=== PATIENT | male | born 1995 | race African-American/Black ===

== ENCOUNTER 2019-02-21 14:34 | Emergency (ER) | payer MEDICAID, OTHER ==
[~2019-02-21] VITALS: Wt 71.2 kg
[2019-02-21 14:43] VITALS: BP 150/72; PULSE 70; RESP 18
[2019-02-21] MEDS ORDERED: ACYC400T2 PO (16:46)
--- NOTE | 2019-02-21 16:49 | ERD ---
ER Documentation Chief Complaint Chief Complaint PENILE PAIN SINCE TODAY. NO DRAINAGE OR RASH HPI 23-year-old male presents with concerns about his genitals. Some burning pain on the right foreskin or shaft. He did have a new sexual partner last week. He denies any dysuria or penile discharge. He is concerned about STDs. Denies any fevers, vomiting, additional rashes. Denies any testicular pain or swelling. ROS All systems reviewed and are negative except as per history of present illness. Medications Home Meds Active Scripts Acyclovir* (Acyclovir*) 400 Mg Tablet, 400 MG PO TID for 7 Days, TAB Prov:HÉCTOR VANG MD 02/21/19 Allergies Allergies: Coded Allergies: No Known Drug Allergies (Verified Allergy, 03/28/13) FmHx Family History: No diabetes, No coronary disease, No other Physical Exam Vitals Vital Signs Date Temp Pulse Resp B/P (MAP) Pulse Ox O2 O2 Flow FiO2 Time Delivery Rate 02/21/19 98.0 70 18 150/72 98 14:43 (98) Physical Exam Const: No acute distress Head: Atraumatic Eyes: Normal Conjunctiva ENT: Normal External Ears, Nose and Mouth. Neck: Full range of motion. No meningismus. Resp: Clear to auscultation bilaterally Cardio: Regular rate and rhythm, no murmurs Abd: Soft, non tender, non distended. Normal bowel sounds Skin: No petechiae or rashes. Irritation possible early vesicular lesion on the right penile shaft uncircumcised male. Testicles nontender normal size and descended bilaterally. No penile discharge. Back: No midline or flank tenderness Ext: No cyanosis, or edema Neur: Awake and alert Psych: Normal Mood and Affect Results 24 hrs Current Medications Medications Dose Sig/Gideon Start Time Status Last (Trade) Ordered Route PRN Stop Time Admin Dose Reason Admin Ceftriaxone 250 mg ONCE ONCE 02/21/19 Sodium IM 17:00 (Rocephin) 02/21/19 17:01 1,000 mg ONCE ONCE 02/21/19 Azithromycin PO 17:00 (Zithromax) 02/21/19 17:01 Procedures/MDM Viral swab sent for herpes culture. Urine sent for gonorrhea chlamydia. Patient wishes to be treated for herpes as well as gonorrhea chlamydia. He was given Rocephin 250 mg IM, Zithromax 1 g p.o. he will be treated with acyclovir for possible herpes although suspicion is low.. Patient is advised to recheck for any worsening symptoms with primary care doctor. There is no signs of abdominal pain, sepsis, additional concerning signs or symptoms. The patient was stable with no new complaints during the ER course. Clinically, there is no current evidence to suggest meningitis, sepsis, acute abdomen, pneumonia, stroke, acute coronary syndrome, pulmonary embolism, aortic dissection or any other emergent condition appearing to require further evaluation or hospitalization. Patient counseled regarding my diagnostic impression and care plan. Prior to discharge all questions answered. Pt agrees with treatment plan and understands strict return precautions. Pt is instructed to follow up with primary care provider within 24-48 hours. Precautionary instructions provided including instructions to return to the ER if not improving or for any worsening or changing symptoms or concerns. Departure Diagnosis: Primary Impression: Pain of male genitalia Condition: Stable Patient Instructions: Urethritis in Men Referrals: [facility] BANUELOS (PCP) Additional Instructions: We will treat for possible herpes although suspicion is low. Test have been sent for gonorrhea chlamydia. Recheck for new or worsening symptoms with primar care doctor. Results should return within a week. HÉCTOR VANG MD Feb 21, 2019 16:49
[2019-02-21] MEDS ORDERED: AZITHROMYCIN 250 MG TAB PO ONE (17:00)
[2019-02-21] MEDS ORDERED: CEFTRIAXONE 250 MG INJ IM ONE (17:00)
== END 2019-02-21 17:21 | disposition home or self-care (01) ==
LOC: FTE 14:34
DX: N48.89 Other specified disorders of penis (principal)
CPT/HCPCS: 87255; 96372; 99284; J0696